=== PATIENT | male | born 1975 | race Caucasian/White ===

== ENCOUNTER → 2024-01-14 | Outpatient (CLI) | payer BC ==
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
== END | disposition home or self-care (01) ==
LOC: RADUSWWP 14:35
PROVIDERS: ATTEND Family Medicine
DX: I65.22 Occlusion and stenosis of left carotid artery (principal); M54.2 Cervicalgia; R51.9 Headache, unspecified
CPT/HCPCS: 93880

== ENCOUNTER 2024-06-06 16:49 | Emergency (ER) | payer BC ==
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
[2024-06-06] MEDS: DIPH,PERTUS(ACELL)TETVAC-LF 0.5 ML VIAL IM ONE (17:38)
[2024-06-06] MEDS: LIDOCAINE/EPINEPHR/TETRACAINE 5 ML BOTTLE TOPICAL ONE (17:39)
[2024-06-06 18:17] VITALS: BP 128/82; PULSE 77; RESP 18; TEMP 98.3
== END 2024-06-06 18:16 | disposition home or self-care (01) ==
LOC: EC 16:49
DX: S61.011A Laceration without foreign body of right thumb without damage to nail, initial encounter (principal)